=== PATIENT | female | born 1980 | race American Indian/Alaskan Native ===

== ENCOUNTER 2018-09-16 23:37 | Outpatient (CLI) | payer MEDICAID ==
[2018-09-17] MEDS ORDERED: LACTATED RINGERS 1,000 ML IV ONE (03:02)
[2018-09-17 03:47] LABS: Amorphous Crystals,Urine Few; Bacteria,Urine 3+ /HPF (Negative); Bilirubin,Urine NEG (Negative); Blood,Urine SM (Negative); Color,Urine Red (Yellow); Mucus,Urine FEW /HPF; Protein,Urine <15 mg/dL mg/dL (Negative); Urobilinogen,Urine < 2.0 mg/dL (<2.0)
[2018-09-17] MEDS ORDERED: ROCEPHIN/NS 2 GM/100 ML 2 GM/100 ML BAG IV ONE (05:00)
[2018-09-17 05:21] VITALS: BP 124/80
== END 2018-09-17 05:35 | disposition home or self-care (01) ==
LOC: TRG 23:37
PROVIDERS: ATTEND Obstetrics & Gynecology
DX: O26.893 Other specified pregnancy related conditions, third trimester (principal); R10.11 Right upper quadrant pain; O47.03 False labor before 37 completed weeks of gestation, third trimester; Z3A.33 33 weeks gestation of pregnancy; Z87.891 Personal history of nicotine dependence
CPT/HCPCS: 59025; 81001; 87076; 87086; 87186; 96361; 96365; J0696; J7120; 96360

== ENCOUNTER 2018-10-16 00:13 | Inpatient (IN) | payer MEDICAID ==
[2018-10-16] MEDS ORDERED: LACTATED RINGERS 1,000 ML IV ONE (01:09)
[2018-10-16 01:23] LABS: Hematocrit 31.8 % (30.3-42.9); Hemoglobin 10.6 gm/dl (10.1-14.3); Mean Corpuscular HGB Conc 33 % (30-34); Mean Corpuscular Volume 88 fl (79-97); Platelet Count 172 K/mm3 (140-440)
[2018-10-16] MEDS ORDERED: SUBLIMAZE ONE (01:47)
[2018-10-16] MEDS ORDERED: PITOCin/NS 20 UNIT/1000ML DRIP 40,000 MILLIUNITS/2,000 ML BAG IV ONE (01:57)
[2018-10-16] MEDS ORDERED: XYLOCAINE 2% INFILTRATI ONE ×2 (02:09→04:47)
--- NOTE | 2018-10-16 04:41 | History and Physical Report ---
History of Present Illness Date of examination: 10/16/18 Date of admission: 10/16/18 01:15 Chief complaint: contractions History of present illness: Pt is a 38 year old -I[place] female YENNI 10/11/18 at 40w5d who presents with contractions and advanced cervical dilation. She has had care at [facility]. She plans to give the baby up for adoption and the adoptive parents are present. She has had limited care at [facility] since 37 wks complicated by late entry to care at 37 wks, UTI treated on 09/23, tobacco use, genital herpes without lesion or prodrome, trichomonas treated with Flagyl on 09/29/18. She is GBS negative. Of note, she plans to give the baby up for adoption and the adoptive parents are at the bedside. 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 History: chlamydia, herpes, trichomonas (treated on 09/29/18) Family/Genetic History: diabetes, heart disease Social history: no significant social history, smoking, alcohol abuse - Obstetrical History Expected Date of Delivery: 10/11/18 Actual Gestation: 40 Week(s) 5 Day(s) : 6 Para: 4 Hx # Term Pregnancies: 4 Number of Pregnancies: 0 Spontaneous Abortions: 0 Induced : 1 Number of Living Children: 4 Medications and Allergies Allergies Allergy/AdvReac Type Severity Reaction Status Date / Time No Known Allergies Allergy Verified 10/16/18 00:45 Home Medications Medication Instructions Recorded Confirmed Last Taken Type No Known Home Medications [No 09/17/18 09/17/18 Unknown History Reported Home Medications] Review of Systems All systems: negative - Vital Signs Vital signs: Vital Signs Pulse Pulse Ox 91 H 100 10/16/18 00:42 10/16/18 00:42 Temp Pulse Resp BP Pulse Ox 97.6 F 86 179/98 99 10/16/18 00:46 10/16/18 02:41 10/16/18 02:41 10/16/18 01:12 - Physical Exam Breasts: Positive: deferred (gravid ) Abdomen: Positive: soft Uterus: Positive: enlarged (gravid ) - Obstetrical Cervical Dilatation: 9 (per RN ) Results Result Diagrams: 10/16/18 06:46 10/16/18 06:46 Abnormal lab results 10/16/18 Range/Units 01:00 WBC 11.2 H (4.5-11.0) K/mm3 RBC 3.60 L (3.65-5.03) M/mm3 RDW 16.0 H (13.2-15.2) % All other labs normal. Assessment and Plan A: IUP at 40w5d Active labor GBS negative P: Admit to labor and delivery Routine intrapartum care Anticipate vaginal delivery
--- NOTE | 2018-10-16 04:44 | Procedure Note ---
OB Delivery Note - Delivery Date of Delivery: 10/16/18 Surgeon: NAYELI LARSON Estimated blood loss: 300cc - Vaginal Delivery presentation: vertex Delivery position: OA Delivery induction: none Delivery monitor: external FHT, external uterine Route of delivery: Delivery placenta: spontaneous Delivery cord: 3 umbilical vessels Episiotomy: none Delivery laceration: 1st degree Delivery repair: vicryl Anesthesia: local Delivery comments: Delivery of attended by Marcela Nurse Materials Scientist as on-call provider was performing a section. call center analyst provider delivered the placenta and repaired the vaginal laceration. - A at 1 minute: 8 at 5 minutes: 9 Gender: Female (3024g (6lb 10.6 oz) @ 0156 am)
[2018-10-16] MEDS ORDERED: BRETHINE IVP PRN (04:47)
[2018-10-16] MEDS ORDERED: MINERAL OIL PO PRN (04:47)
[2018-10-16] MEDS ORDERED: NARCAN 0.4 MG/1 ML IV PRN (04:47)
[2018-10-16] MEDS ORDERED: BRETHINE SUB-Q PRN (04:47)
[2018-10-16] MEDS ORDERED: SUBLIMAZE IV PRN (04:47)
[2018-10-16] MEDS ORDERED: ZOFRAN IV PRN ×2 (04:47→05:23)
[2018-10-16] MEDS ORDERED: STADOL IV PRN (04:47)
[2018-10-16] MEDS ORDERED: LACTATED RINGERS 1,000 ML IV SCH ×2 (05:00→19:00)
[2018-10-16] MEDS ORDERED: PITOCin/NS 20 UNIT/1000ML DRIP 20 UNITS/1,000 ML BAG IV SCH ×2 (05:00→05:23)
[2018-10-16] MEDS ORDERED: SODIUM CHLORIDE FLUSH SYRINGE 10 ML IV NR (05:23)
[2018-10-16] MEDS ORDERED: PHENERGAN PR PRN (05:23)
[2018-10-16] MEDS ORDERED: PHENERGAN PO PRN (05:23)
[2018-10-16] MEDS ORDERED: BENADRYL PO PRN (05:23)
[2018-10-16] MEDS ORDERED: TYLENOL PO PRN (05:23)
[2018-10-16] MEDS ORDERED: DERMOPLAST TP PRN (05:23)
[2018-10-16] MEDS ORDERED: LANSINOH TP PRN ×2 (05:23)
[2018-10-16] MEDS ORDERED: NORCO 5/325 PO PRN (05:23)
[2018-10-16] MEDS ORDERED: DULCOLAX PR PRN (05:23)
[2018-10-16] MEDS ORDERED: MILK OF MAGNESIA PO PRN (05:23)
[2018-10-16] MEDS ORDERED: TUCKS PAD TP PRN (05:23)
[2018-10-16] MEDS: IBUPROFEN PO SCH ×3 (05:43→17:41)
[2018-10-16 07:24] LABS: Hematocrit 29.4 % (30.3-42.9); Hemoglobin 9.8 gm/dl (10.1-14.3); Mean Corpuscular HGB Conc 33 % (30-34); Mean Corpuscular Volume 88 fl (79-97); Platelet Count 164 K/mm3 (140-440); Red Blood Count 3.35 M/mm3 (3.65-5.03); Red Cell Distribution Width 15.8 % (13.2-15.2)
[2018-10-16 07:29] LABS: Alanine Aminotransferase 11 units/L (7-56); Uric Acid 3.1 mg/dL (3.5-7.6)
[2018-10-16 09:23] LABS: Bilirubin,Urine NEG (Negative); Blood,Urine LG (Negative); Color,Urine Red (Yellow); Urobilinogen,Urine < 2.0 mg/dL (<2.0)
[2018-10-16 09:35] LABS: RBC,Urine > 182.0 /HPF (0.0-6.0)
[2018-10-16] MEDS: FEOSOL PO SCH (11:24)
--- NOTE | 2018-10-16 15:25 | Event Note ---
Date: 10/16/18 Called by RN on [facility] unit regarding elevated blood pressures. PI labs ordered. Continue to monitor closely with addition of magnesium sulfate and antihypertensives for severe range disease.
[2018-10-16 16:54] LABS: Hematocrit 28.1 % (30.3-42.9); Hemoglobin 9.5 gm/dl (10.1-14.3)
[2018-10-16] MEDS: ROCEPHIN/NS 1 GM/50 ML 1 GM/50 ML BAG IV SCH (18:23)
[2018-10-17] MEDS ORDERED: BOOSTRIX IM ONE (06:00)
[2018-10-17] MEDS ORDERED: M-M-R II VACCINE SUB-Q ONE (06:00)
[2018-10-17] MEDS: ROCEPHIN/NS 1 GM/50 ML 1 GM/50 ML BAG IV SCH (11:02)
[2018-10-17] MEDS: IBUPROFEN PO SCH ×2 (11:03)
[2018-10-17] MEDS: FEOSOL PO SCH (11:43)
--- NOTE | 2018-10-17 12:17 | Progress Note ---
Assessment and Plan A: PPD#1 s/p at term, Gestational HTN, Asymtomatic anemia, Baby being given for adoption P: Routine care. Discharge today with follow up in 1 wk for blood pressure check Subjective - Subjective Date of service: 10/17/18 Principal diagnosis: s/p at term, Asymptomatic anemia Interval history: No overnight events. Patient is anxious to go home. Patient reports: appetite normal, voiding normally, pain well controlled, ambulating normally : doing well (being given up for adoption, adoptive parents present at bedside, case management aware ) Objective - Vital Signs Latest vital signs: Vital Signs Temp Pulse Resp BP Pulse Ox 10/17/18 08:46 98.0 F 73 18 137/94 100 10/17/18 00:37 71 145/92 99 10/16/18 23:25 98.2 F 74 20 148/93 100 10/16/18 16:25 98.6 F 71 18 137/84 98 10/16/18 12:42 98.4 F 78 18 135/93 99 Intake and Output 10/16/18 10/17/18 10/17/18 22:59 06:59 14:59 Intake Total 770 240 360 Balance 770 240 360 Intake: IV 50 ROCEPHIN/NS 1 GM/50 ML 1 50 gm In 50 ml @ 100 mls/hr IV Q24HR [facility] Rx#: [id number] Oral 360 240 120 Intake, Free Water 360 240 Other: Total, Intake Amount 360 240 120 # Voids Void 1 1 1 - Exam Breasts: Present: deferred Cardiovascular: Present: Regular rate Lungs: Present: Clear to auscultation Abdomen: Present: soft Uterus: Present: fundal height below umbilicus Extremities: Present: normal - Labs Labs: Abnormal lab results 10/16/18 Range/Units 16:18 Hgb 9.5 L (10.1-14.3) gm/dl Hct 28.1 L (30.3-42.9) %
--- NOTE | 2018-10-17 12:20 | Discharge Summary ---
Providers - Providers Date of Admission: 10/16/18 01:15 Date of discharge: 10/17/18 Attending physician: NAYELI LARSON 10/16/18 14:01 Consult to Case Management [CONS] Urgent Services Needed at Discharge: Finance Insurance Manager Notified:: yes Phone number called:: [phone] Was contact made?: Yes If yes, spoke with:: Radha Time called:: 14:01 Comment:: Will follow up on Thursday Additional Physician Instructions: [facility] Primary care physician: NAYELI LARSON Hospitalization Reason for admission: active labor Delivery: Procedure details: Please see delivery note. Episiotomy: none Laceration: 1st degree Other procedures: none complications: none Discharge diagnosis: IUP at term delivered baby: female Hospital course: The patient was admitted in active labor went on to have a spontaneous vaginal delivery which she tolerated well. She was noted to have elevated blood pressures but her PIH labs did not support severe disease. Her course was otherwise uncomplicated and she would discharge her today on day #1 per patient request. She will follow up in the office in 1 week for a blood pressure check. Condition at discharge: Stable Disposition: DC- TO HOME OR SELFCARE - Discharge Diagnoses (1) Term of female Status: Acute (2) Anemia Status: Acute Qualifiers: Anemia type: unspecified type Qualified Code(s): D64.9 - Anemia, unspecified (3) Advanced maternal age (AMA) in Status: Acute (4) with adoption planned Status: Acute Qualifiers: Trimester: third trimester Qualified Code(s): Z34.93 - Encounter for supervision of normal , unspecified, third trimester (5) Gestational hypertension Status: Acute Qualifiers: Trimester: third trimester Qualified Code(s): O13.3 - Gestational [-induced] hypertension without significant proteinuria, third trimester Plan - Discharge Medications Prescriptions: Ferrous Sulfate [Feosol 325 MG tab] 325 mg PO BID #60 tablet Nitrofurantoin [place]/M-Cryst [Macrobid CAP] 100 mg PO Q12HR #14 capsule Ibuprofen [Motrin] 800 mg PO Q8HR PRN #30 tablet PRN Reason: Pain, Moderate (4-6) HYDROcodone/APAP 5-325 [[place] 5/325] 1 each PO Q6HR PRN #20 tablet PRN Reason: Pain - Provider Discharge Summary Activity: routine, no sex for 6 weeks, no heavy lifting 4 weeks, no strenuous exercise Diet: routine Instructions: routine Additional instructions: [] Smoking cessation referral if applicable(refer to patient education folder for contact #) [] Refer to [facility]'s [facility] Booklet Call your doctor immediately for: * Fever > 100.5 * Heavy vaginal bleeding ( >1 pad per hour) * Severe persistent headache * Shortness of breath * Reddened, hot, painful area to leg or breast * Drainage or odor from incision. * Keep incision clean and dry at all times and follow doctor's instructions regarding bathing/showering - Follow up plan Follow up: NAYELI LARSON MD [Primary Care Provider] - 7 Days (Please call the office to schedule a blood pressure check in 1 week )
[2018-10-17 16:31] VITALS: BP 147/88
== END 2018-10-17 16:15 | disposition home or self-care (01) | DRG 774 ==
LOC: TRG 00:13 → LD 01:15 → OB 05:03
PROVIDERS: ADMIT Obstetrics & Gynecology; ATTEND Obstetrics & Gynecology
PROC: 10E0XZZ Delivery of Products of Conception, External Approach (ICD-10-PCS; principal; 2018-10-16)
PROC: 3E0234Z Introduction of Serum, Toxoid and Vaccine into Muscle, Percutaneous Approach (ICD-10-PCS; 2018-10-17)
DX: O13.4 Gestational [pregnancy-induced] hypertension without significant proteinuria, complicating childbirth (principal); O70.0 First degree perineal laceration during delivery; O99.02 Anemia complicating childbirth; D64.9 Anemia, unspecified; Z37.0 Single live birth; Z3A.40 40 weeks gestation of pregnancy; Z83.3 Family history of diabetes mellitus; Z82.49 Family history of ischemic heart disease and other diseases of the circulatory system; Z23 Encounter for immunization
CPT/HCPCS: 36415; 59025; 81001; 82565; 83615; 84450; 84460; 84550; 85014; 85018; 85027; 86592; 86850; 86900; 86901; 87086; G0378; J0696; J2590; J3010; J7120

== ENCOUNTER 2019-01-21 21:13 | Emergency (ER) | payer MEDICAID ==
--- NOTE | 2019-01-21 21:38 | Event Note ---
ED Screening Note ED Screening Note: right sided ESTRADA for 3 days states she tried excedrin migraine without relief states she sees spots in her left eye no numbness states she feels weakness in her bilateral lower extremities used a nicoderm patch currently on menstrual cycle denies any hx of headaches no PMHx no allergies to meds This initial assessment/diagnostic orders/clinical plan/treatment(s) is/are subject to change based on patients health status, clinical progression and re- assessment by fellow clinical providers in the ED. Further treatment and workup at subsequent clinical providers discretion. Patient/guardian urged not to elope from the ED as their condition may be serious if not clinically assessed and managed. Initial orders include: CT head
--- NOTE | 2019-01-21 22:44 | Cat Scan Report ---
CT head/brain wo con INDICATION / CLINICAL INFORMATION: ESTRADA, left eye blurry vision. TECHNIQUE: Axial CT imaging of brain was obtained without contrast. Coronal and sagittal reformatted imaging obt ained and reviewed. All CT scans at this location are performed using CT dose reduction for ALARA by means of automated exposure control. COMPARISON: None available. FINDINGS: No evidence for intracranial hemorrhage, mass, or midline shift. However there is hyperdense round ma ss, measuring 10 mm, anterior to the brainstem that is highly suspicious for a basilar artery aneurys m. I do not see any subarachnoid hemorrhage. Ventricular system and basilar cisterns are otherwise unremarkable. No extra-axial fluid collection. Visualized paranasal sinuses and mastoid air cells are well aerated and clear. IMPRESSION: 1. 10 mm hyperdense mass anterior to the laquita, worrisome for basilar artery aneurysm. Recommend furth er evaluation with CTA brain. CRITICAL RESULT: Time of Discovery: 2130 hours CAN INTAKE WORKER Time of Communication: 2139 hours CAN INTAKE WORKER Licensed Practitioner Receiving Report: Dr. Lagunas Read Back Performed: Yes. Signer Name: Jackie Kraus MD Signed: 01/21/2019 10:40 PM Workstation Name: [id number]
[2019-01-21 23:15] LABS: Basophils # (Auto) 0.1 K/mm3 (0.0-0.1); Basophils % (Auto) 0.9 % (0.0-1.8); Eosinophils % (Auto) 0.3 % (0.0-4.3); Hematocrit 47.2 % (30.3-42.9); Hemoglobin 15.8 gm/dl (10.1-14.3); Lymphocytes % (Auto) 19.3 % (13.4-35.0); Mean Corpuscular HGB Conc 34 % (30-34); Mean Corpuscular Volume 83 fl (79-97); Monocytes # (Auto) 0.5 K/mm3 (0.0-0.8); Monocytes % (Auto) 4.4 % (0.0-7.3); Red Blood Count 5.69 M/mm3 (3.65-5.03); Red Cell Distribution Width 16.8 % (13.2-15.2)
[2019-01-21 23:24] LABS: Platelet Count 154 K/mm3 (140-440)
--- NOTE | 2019-01-21 23:26 | Emergency Department Report ---
<MORRIS RADFORD - Last Filed: 01/21/19 23:41> ED Headache HPI - General Chief Complaint: Headache Stated Complaint: MIGRAINE/BODY NUMBNESS/VISUAL CHANGES Time Seen by Provider: 01/21/19 21:35 Source: patient Exam Limitations: no limitations - History of Present Illness Initial Comments: 4 Timing/Duration: other (4 days ) Quality: moderate Head Injury Location: frontal Recent Head Trauma: no recent headache/trauma Modifying Factors: improves with: movement Associated Symptoms: nausea/vomiting, numbness in legs/feet, weakness Allergies/Adverse Reactions: Allergies No Known Allergies Allergy (Verified 10/16/18 00:45) Home Medications: Ambulatory Orders Ferrous Sulfate [Feosol 325 MG tab] 325 mg PO BID #60 tablet 10/17/18 HYDROcodone/APAP 5-325 [[place] 5/325] 1 each PO Q6HR PRN #20 tablet 10/17/18 Ibuprofen [Motrin] 800 mg PO Q8HR PRN #30 tablet 10/17/18 Nitrofurantoin [place]/M-Cryst [Macrobid CAP] 100 mg PO Q12HR #14 capsule 10/17/18 ED Review of Systems Constitutional: malaise, weakness Eyes: eye pain (bilat aching ). denies: eye discharge, vision change ENT: denies: ear pain, throat pain, epistaxis Respiratory: denies: cough, shortness of breath, wheezing Cardiovascular: denies: chest pain, palpitations Endocrine: no symptoms reported Gastrointestinal: nausea, vomiting. denies: abdominal pain, diarrhea Genitourinary: denies: urgency, dysuria, discharge Musculoskeletal: back pain, myalgia Skin: denies: rash, lesions Neurological: headache, weakness, paresthesias. denies: vertigo Psychiatric: denies: anxiety, depression Hematological/Lymphatic: denies: easy bleeding, easy bruising ED Past Medical Hx - Past Medical History Previous Medical History?: No Hx Hypertension: No Hx Diabetes: No Hx Deep Vein Thrombosis: No Hx Renal Disease: No Hx Sickle Cell Disease: No Hx Seizures: No Hx Asthma: No Hx HIV: No - Surgical History Past Surgical History?: No - Social History Smoking Status: Current Every Day Smoker Substance Use Type: None - Medications Home Medications: Home Medications Medication Instructions Recorded Confirmed Last Taken Type Ferrous Sulfate [Feosol 325 MG tab] 325 mg PO BID #60 tablet 10/17/18 Unknown Rx HYDROcodone/APAP 5-325 [[place] 1 each PO Q6HR PRN #20 tablet 10/17/18 Unknown Rx 5/325] Ibuprofen [Motrin] 800 mg PO Q8HR PRN #30 tablet 10/17/18 Unknown Rx Nitrofurantoin [place]/M-Cryst 100 mg PO Q12HR #14 capsule 10/17/18 Unknown Rx [Macrobid CAP] ED Physical Exam - General Limitations: No Limitations General appearance: alert, in no apparent distress - Head Head exam: Present: normocephalic, normal inspection - Eye Eye exam: Present: normal appearance, PERRL, EOMI. Absent: conjunctival injection, nystagmus Pupils: Present: normal accommodation - Expanded Eye Exam Expanded Pupils: Regular, Round: Bilateral, Reactive: Bilateral Sclera/Conjunctival: Normal Inspection: Bilateral Anterior chamber: Normal Inspection: Bilateral Posterior chamber: Deferred: Bilateral Visual acuity (R) = 20/: 30 Visual acuity (L) = 20/: 30 - ENT ENT exam: Present: normal orophraynx, mucous membranes moist, TM's normal bilaterally, normal external ear exam - Neck Neck exam: Present: normal inspection, full ROM. Absent: tenderness, lymphadenopathy, thyromegaly - Respiratory Respiratory exam: Present: normal lung sounds bilaterally. Absent: respiratory distress, wheezes, stridor, chest wall tenderness - Cardiovascular Cardiovascular Exam: Present: regular rate, normal rhythm, normal heart sounds. Absent: systolic murmur, diastolic murmur, rubs, gallop - GI/Abdominal GI/Abdominal exam: Present: soft, normal bowel sounds. Absent: distended, tenderness, guarding, rebound, rigid, bruit, hernia - Rectal Rectal exam: Present: deferred - Extremities Exam Extremities exam: Present: normal inspection, full ROM, normal capillary refill. Absent: tenderness, pedal edema, joint swelling, calf tenderness - Back Exam Back exam: Present: normal inspection, full ROM. Absent: tenderness, CVA tenderness (R), CVA tenderness (L), muscle spasm, paraspinal tenderness, vertebral tenderness, rash noted - Neurological Exam Neurological exam: Present: alert, oriented X3, CN II-XII intact, normal gait, reflexes normal. Absent: motor sensory deficit - Psychiatric Psychiatric exam: Present: normal affect, normal mood - Skin Skin exam: Present: warm, dry, intact, normal color. Absent: rash ED Medical Decision Making - Lab Data Result diagrams: 01/21/19 22:51 01/21/19 22:51 - Radiology Data Radiology results: report reviewed, image reviewed Referring Physician: ERIK OBRIEN Patient Name: SADIQ RUSS Date of : 1980 Sex: Female Report Date: 2019-01-21 Report Status: Finalized Findings [facility] [address] [place] [address] Cat Scan Report Signed Patient: SADIQ RUSS MR#: [id number] : 1980 Acct:[id number] Age/Sex: 38 / F ADM Date: 01/21/19 Loc: ED Attending Dr: Ordering Physician: DAWOOD JARQUIN Date of Service: 01/21/19 Procedure(s): CT head/brain wo con Accession Number(s): [id number] cc: DAWOOD JARQUIN CT head/brain wo con INDICATION / CLINICAL INFORMATION: ESTRADA, left eye blurry vision. TECHNIQUE: Axial CT imaging of brain was obtained without contrast. Coronal and sagittal reformatted imaging obtained and reviewed. All CT scans at this location are performed using CT dose reduction for ALARA by means of automated exposure control. COMPARISON: None available. FINDINGS: No evidence for intracranial hemorrhage, mass, or midline shift. However there is hyperdense round mass, measuring 10 mm, anterior to the brainstem that is highly suspicious for a basilar artery aneurysm. I do not see any subarachnoid hemorrhage. Ventricular system and basilar cisterns are otherwise unremarkable. No extra- axial fluid collection. Visualized paranasal sinuses and mastoid air cells are well aerated and clear. IMPRESSION: 1. 10 mm hyperdense mass anterior to the laquita, worrisome for basilar artery aneurysm. Recommend further evaluation with CTA brain. CRITICAL RESULT: Time of Discovery: 2129 hours ENGINEER DESIGN AND CONSTRUCTION Time of Communication: 2138 hours ENGINEER DESIGN AND CONSTRUCTION Licensed Practitioner Receiving Report: Dr. Lagunas Read Back Performed: Yes. Signer Name: Jackie Kraus MD Signed: 01/21/2019 10:40 PM Workstation Name: [id number] Transcribed By: Dictated By: Jackie Kraus MD Electronically Authenticated By: Jackie Kraus MD Signed Date/Time: 01/21/192239 DD/ 27 TD/TT: - Medical Decision Making consulted ed attending recommendation [facility], will see patient in room 38, Neuroconsult called to [facility]. ED Disposition Clinical Impression: Blurry vision, Weakness, SAH (subarachnoid hemorrhage), Aneurysm Headache Qualifiers: Headache type: unspecified Headache chronicity pattern: acute headache Intractability: intractable Qualified Code(s): R51 - Headache Hypertension Qualifiers: Hypertension type: essential hypertension Qualified Code(s): I10 - Essential (primary) hypertension Disposition: DC/TX-70 ANOTHER TYPE HLTHCARE Condition: Critical Referrals: PRIMARY CARE, [Primary Care Provider] - 3-5 Days <MARIA T MARTINEZ III - Last Filed: 01/22/19 04:18> ED Review of Systems ROS: Stated complaint: MIGRAINE/BODY NUMBNESS/VISUAL CHANGES Other details as noted in HPI ED Past Medical Hx - Past Medical History Previous Medical History?: Yes Hx Hypertension: Yes - Surgical History Past Surgical History?: No - Family History Family history: no significant - Social History Smoking Status: Current Every Day Smoker Substance Use Type: None ED Physical Exam - General Limitations: No Limitations General appearance: alert, in no apparent distress - Head Head exam: Present: atraumatic, normocephalic - Eye Eye exam: Present: normal appearance, PERRL, EOMI Pupils: Present: normal accommodation - ENT ENT exam: Present: normal orophraynx, mucous membranes moist - Neck Neck exam: Present: normal inspection - Respiratory Respiratory exam: Present: normal lung sounds bilaterally. Absent: respiratory distress - Cardiovascular Cardiovascular Exam: Present: regular rate, normal rhythm, normal heart sounds. Absent: systolic murmur, diastolic murmur, rubs, gallop - GI/Abdominal GI/Abdominal exam: Present: soft, normal bowel sounds - Rectal Rectal exam: Present: deferred - Extremities Exam Extremities exam: Present: normal inspection - Back Exam Back exam: Present: normal inspection - Neurological Exam Neurological exam: Present: alert, oriented X3, CN II-XII intact, normal gait, reflexes normal - Psychiatric Psychiatric exam: Present: normal affect, normal mood - Skin Skin exam: Present: warm, dry, intact, normal color. Absent: rash ED Course Vital Signs 01/21/19 01/22/19 01/22/19 21:21 01:54 02:00 Temperature 98.9 F Pulse Rate 85 72 60 Respiratory 16 18 Rate Blood Pressure 148/104 O2 Sat by Pulse 99 Oximetry 01/22/19 01/22/19 01/22/19 02:03 02:30 03:00 Temperature Pulse Rate 74 70 62 Respiratory 20 21 Rate Blood Pressure 169/105 71/49 130/76 O2 Sat by Pulse 99 100 Oximetry 01/22/19 01/22/19 03:31 03:59 Temperature Pulse Rate 65 Respiratory 21 18 Rate Blood Pressure 120/84 O2 Sat by Pulse 99 100 Oximetry - Reevaluation(s) Reevaluation #1: I discussed CT results with patient. I examined the patient. The patient was initially evaluated by Morris su nurse practitioner. I assumed care of the patient. Patient's lung sounds are clear. Patient's cardiovascular exam reveals normal S1 and S2 no rubs, murmurs or gallops. 2+ pulses. Patient's neuro exam is intact. Patient's anal 4. Patient answering questions appropriately. Patient's NIH is negative. Patient is still having headache. Patient will have a CTA. I discussed plan of care with patient. Patient agrees with plan of care. 01/22/19 00:10 Reevaluation #2: I discussed all results with patient. I discussed plan of care and transfer patient. Patient agrees with plan of care and transfer. Patient will be trans ferred [place] [facility] [place] available and via EMS. 01/22/19 01:45 - Consultations Consultation #1: I discussed case with neuro surgeon and neuro coil cleaner at [facility] And they recommend having a CTA done here and to call back if any acute findings. 01/22/19 00:03 Discussed case with neurosurgery and neuro coil cleaner at [facility] Ortez has accepted the patient to be transferred to [facility] [place] 01/22/19 01:28 ED Medical Decision Making - Lab Data Result diagrams: 01/21/19 22:51 01/21/19 22:51 - Radiology Data HEAD CT ANGIOGRAM 01/22/2019 HISTORY: Headache. Dizziness. Abnormal CT scan. FINDINGS: Contrast-enhanced CT angiographic images of the intracranial circulation were obtained. In addition to the axial images, sagittal and coronal reformatted images were obtained. In addition, 3 plane MIP reconstructions were produced. Correlation is made to a CT scan performed 01/21/2018. The CT report raises the possibility of a basilar tip aneurysm. Upon further review, it appears that the CT demonstrates evidence of subarachnoid hemorrhage, with some hemorrhage noted in the prepontine and ambient cistern. Mild early hydrocephalus is suspected. The CT angiogram demonstrates the presence of an unusual slightly lobulated aneurysm arising from the vertebrobasilar junction, measuring proximally 6 mm in length, directed anteriorly and slightly to the right. This is an unusual location for an aneurysm. It appears to be near the expected origin of the anterior inferior cerebellar artery origin. There also is a 5 mm aneurysm present at the right middle cerebral artery trifurcation. The caliber of the intracranial vessels, particularly branches of the distal internal carotid arteries is relatively small, which may be an indication of vasospasm, although this could also be seen as an anatomic variant. Ventricular size is slightly prominent, with visualization of the temporal horns noted as seen on the earlier CT scan. This may be an indication of early or developing hydrocephalus. IMPRESSION: 1. 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 2. 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 3. Clarification an earlier head CT report, which demonstrates evidence of subarachnoid hemorrhage possible early hydrocephalus. 4. Relatively small caliber intracranial vessels. - Differential Diagnosis headache. ICH. Weakness. Critical Care Time: Yes Critical care attestation.: If time is entered above; I have spent that time in minutes in the direct care of this critically ill patient, excluding procedure time. Critical Care Time: 80 minutes ED Disposition Is pt being admited?: No Does the pt Need Aspirin: No Time of Disposition: 01:48
[2019-01-21 23:34] LABS: BUN/Creatinine Ratio 24; Blood Urea Nitrogen 22 mg/dL (7-17); Calcium 9.9 mg/dL (8.4-10.2); Hemolysis Index 21
--- NOTE | 2019-01-22 01:24 | Cat Scan Report ---
HEAD CT ANGIOGRAM 01/22/2019 HISTORY: Headache. Dizziness. Abnormal CT scan. FINDINGS: Contrast-enhanced CT angiographic images of the intracranial circulation were obtained. In addition to the axial images, sagittal and coronal reformatted images were obtained. In addition, 3 p dominic MIP reconstructions were produced. Correlation is made to a CT scan performed 01/21/2018. The CT report raises the possibility of a basil ar tip aneurysm. Upon further review, it appears that the CT demonstrates evidence of subarachnoid he morrhage, with some hemorrhage noted in the prepontine and ambient cistern. Mild early hydrocephalus is suspected. The CT angiogram demonstrates the presence of an unusual slightly lobulated aneurysm arising from the vertebrobasilar junction, measuring proximally 6 mm in length, directed anteriorly and slightly to t he right. This is an unusual location for an aneurysm. It appears to be near the expected origin of t he anterior inferior cerebellar artery origin. There also is a 5 mm aneurysm present at the right middle cerebral artery trifurcation. The caliber of the intracranial vessels, particularly branches of the distal internal carotid arterie s is relatively small, which may be an indication of vasospasm, although this could also be seen as a n anatomic variant. Ventricular size is slightly prominent, with visualization of the temporal horns noted as seen on the earlier CT scan. This may be an indication of early or developing hydrocephalus. IMPRESSION: 1. 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 2. 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 3. Clarification an earlier head CT report, which demonstrates evidence of subarachnoid hemorrhage po ssible early hydrocephalus. 4. Relatively small caliber intracranial vessels. The findings in this report as well as the additional information on the original head CT have been d iscussed with Dr. Kaley Carlson on 01/22/2019 at 0115 hours (ET) All CT scans at this location are performed using dose reduction to ALARA by means of automated expos ure control. Signer Name: Roque Orbegon MD Signed: 01/22/2019 1:19 AM Workstation Name: [id number]
[2019-01-22] MEDS ORDERED: levETIRAcetam 1000 MG/NS 0.75% 1,000 MG/100 ML BAG IV ONE (01:30)
[2019-01-22] MEDS ORDERED: hydrALAZINE 20 MG/1 ML INJ IV ONE (01:47)
[2019-01-22 04:17] VITALS: BP 123/81
== END 2019-01-22 04:27 | disposition other institution (70) ==
LOC: ED 21:13
DX: I67.1 Cerebral aneurysm, nonruptured (principal); F17.200 Nicotine dependence, unspecified, uncomplicated; I10 Essential (primary) hypertension; I60.9 Nontraumatic subarachnoid hemorrhage, unspecified
CPT/HCPCS: 36415; 70450; 70496; 80048; 84703; 85025; 96365; 96375; 99291; J0360; J1953; Q9967